=== PATIENT | female | born 1985 | race Caucasian/White ===

== ENCOUNTER 2019-05-13 07:30 | Emergency (ER) | payer BC ==
[~2019-05-13] VITALS: Ht 160 cm; Wt 67.1 kg
[2019-05-13] MEDS ORDERED: CYMBALTA20 MG PO (07:44)
[2019-05-13] MEDS ORDERED: PROVIGIL 200 M200 MG PO (07:45)
[2019-05-13 08:17] LABS: INFLUENZA A ANTIGEN Negative (Negative)
[2019-05-13] MEDS ORDERED: TAMIFLU75 MG PO (08:28)
[2019-05-13 09:09] VITALS: BP 105/63
== END 2019-05-13 09:12 | disposition home or self-care (01) ==
LOC: M.ERS 07:30
PROVIDERS: Family Medicine
DX: J02.0 Streptococcal pharyngitis (principal); Z90.89 Acquired absence of other organs; Z98.890 Other specified postprocedural states